=== PATIENT | female | born 1990 | race Caucasian/White ===

== ENCOUNTER → 2016-10-30 | Outpatient (CLI) | payer OTHER ==
[~2016-10-30] MED LIST: INUL1CHW2; PRENTAB65 PO
[2016-10-30 14:03] LABS: URINE APPEARANCE CLEAR (CLEAR); URINE BILIRUBIN NEG (NEG); URINE COLOR YELLOW; URINE EPITHELIAL CELL AUTO >30 /lpf (0-5); URINE NITRITE NEG (NEG); UROBILINOGEN NEG (NEG)
[2016-10-30 14:04] LABS: MANUAL MICROSCOPIC REQUIRED? NO; REVIEW REQ? NO
[2016-10-30 14:34] LABS: HEMATOCRIT 32.4 % (37-47)
[2016-10-30 15:29] LABS: GTGD 50 Grams
== END | disposition home or self-care (01) ==
LOC: C.LAB1850 12:53
PROVIDERS: ATTEND Obstetrics & Gynecology
DX: Z34.03 Encounter for supervision of normal first pregnancy, third trimester (principal)

== ENCOUNTER 2016-12-16 05:10 | Outpatient (CLI) | payer OTHER ==
[~2016-12-16] VITALS: Ht 154.9 cm; Wt 70.5 kg
[2016-12-16 05:55] VITALS: Ht 154.9 cm; Wt 70.5 kg
[2016-12-16] MEDS ORDERED: PRENTAB65 PO (05:55)
[2016-12-16] MEDS ORDERED: INUL1CHW2 (05:55)
[2016-12-16] MEDS ORDERED: LACTATED RINGER'S 1000ML 1,000 ML IV SCH (06:59)
[2016-12-16] MEDS ORDERED: BETAMETH SOD PHOS/ACETATE IA 6 MG/ML IM SCH (07:30)
[2016-12-16] MEDS ORDERED: INFLUENZA VIRUS QUAD VACCINE 0.5 ML SYR IM. ONE (07:30)
[2016-12-16] MEDS ORDERED: INFLUENZA ADMINISTRATION CHARGE ONE (07:30)
[2016-12-16 07:42] LABS: BASO % 0.2 %; BASO ABS # 0.02 K/uL (0-0.2); COMPLETE YES; EOS % 1.3 %; IG% 0.2 %; LYMPH % 15.4 %; LYMPH ABS # 1.45 K/uL (1.2-3.4); MEAN CELL VOLUME 92.3 fL (80-100); MEAN CORPUSCULAR HEMOGLOBIN 30.8 pg (25-34); MEAN CORPUSCULAR HGB CONC 33.3 g/dl (32-36); MEAN PLATELET VOLUME 10.9 fL (7.4-10.4); MONO % 8.9 %; PLATELET COUNT 186 K/uL (130-400); WHITE BLOOD COUNT 9.43 K/uL (4.8-10.8)
[2016-12-16] MEDS ORDERED: PENICILLIN G POTASSIUM IV 6 MU in DEXTROSE 5% 250ML 250 ML IV ONE (08:00)
[2016-12-18 01:04] LABS: CHLAMYDIA TRACH RNA*** NOT DETECTED (NOT DETECTED); GC (NEIS GONORRHOEAE)RNA** NOT DETECTED (NOT DETECTED)
== END 2016-12-16 08:30 | disposition short-term general hospital (02) ==
LOC: C.LD 05:10 → C.OPB 05:10
PROVIDERS: ATTEND Obstetrics & Gynecology
DX: O60.03 Preterm labor without delivery, third trimester (principal); Z3A.35 35 weeks gestation of pregnancy

== ENCOUNTER 2019-03-23 00:38 | Inpatient (IN) ==
[2019-03-23] MEDS ORDERED: PENICILLIN G POTASSIUM 6 MU in DEXTROSE 5% 250 ML IV STA (01:54)
[2019-03-23] MEDS ORDERED: PENICILLIN G POTASSIUM 3 MU in DEXTROSE 5% 100 ML IV PRN (01:54)
[2019-03-23] MEDS ORDERED: OXYTOCIN 30 UNITS/500 ML BAG IV PRN ×2 (01:54→06:09)
[2019-03-23] MEDS: LACTATED RINGER'S 1,000 ML IV PRN ×2 (02:05→03:07)
[2019-03-23] MEDS ORDERED: ePHEDrine sulfate 50 MG/ML AMP ONE (02:40)
[2019-03-23] MEDS ORDERED: BUPIVACAINE 0.25% 30 ML VIAL ONE (02:40)
[2019-03-23] MEDS ORDERED: fentaNYL citrate 100 MCG/2 ML VIAL ONE (02:40)
[2019-03-23] MEDS ORDERED: fentaNYL 2MCG/ML ROPIV 1.25MG/ML 100 ML BAG EPI ONE (02:46)
[2019-03-23 02:58] LABS: Hematocrit (blood only) 33.9 % (37-47); Hemoglobin 11.3 g/dL (12.0-16.0); Mean Corpuscular Volume 89.9 fL (80-100); Mean Platelet Volume 11.5 fL (7.4-10.4); Platelet Count 182 K/uL (130-400); RDW Coefficient of Variation 13.3 % (11.5-14.5); RDW Standard Deviation 43.4 fL (36.4-46.3); Red Blood Count 3.77 M/uL (4.2-5.4); White Blood Count 11.44 K/uL (4.8-10.8)
[2019-03-23 02:59] LABS: Mean Corpuscular Hgb Conc 33.3 g/dL (32-36)
--- NOTE | 2019-03-23 03:47 | Anesthesiology Consultation ---
Date of Service March 23, 2019 Assessment & Plan Chart Review Chart Review: Acceptable Risk for Surgery and Patient NOT seen in Pre Admission Testing Consults Requested none History Height/Weight Height: 5 ft 2 in Weight: 76.657 kg Allergies Allergy/AdvReac Type Severity Reaction Status Date / Time No Known Allergies Allergy Unverified 12/16/16 05:55 Medications Home Medications Medication Instructions Recorded Confirmed Last Taken vit-iron fum-folic ac 1 tab PO DAILY 03/23/19 03/23/19 03/16/19 [ Vitamin] Active Medications Generic Name Dose Route Start Last Admin Trade Name Freq PRN Reason Stop Dose Admin Lactated Ringer's 1,000 mls @ 125 mls/hr 03/23/19 01:54 03/23/19 03:07 Lr IV 03/25/19 01:53 125 mls/hr .Q8H PRN Administration L&D Protocol Protocol Past Surgical History Surgical History Hx of tonsillectomy Social History Smoking Status: Never smoker Hx Alcohol Use: No Hx Substance Use: No Physical Exam Vital Signs Last Vital Signs Temp 36.7 C 03/23/19 00:52 Pulse 67 03/23/19 03:42 Resp 18 03/23/19 02:30 BP 105/54 L 03/23/19 03:41 Pulse Ox 97 03/23/19 03:42 Testing Laboratory Results 03/23/19 02:00
--- NOTE | 2019-03-23 04:33 | Labor Progress Brief Note ---
Date of Service March 23, 2019 Subjective Reason For Note: Routine Evaluation Comfortable with Epidural Assessment & Plan (1) Amniotic fluid leaking: Labor progressed spontaneously. Await rest of dilation and then begin second stage. Present on Admission?: Yes Physical Exam Genitourinary: Manual OB Exam: + cervical dilation 9 cm (anterior lip), + cervical effacement 100%, + station + 1 and + amniotic fluid clear OB Exam Monitor Tracing: + category I Results & Data Vital Signs (Past 12 Hours) Vital Signs Temp Pulse Resp BP Pulse Ox 03/23/19 04:30 76 122/64 03/23/19 04:27 82 100 03/23/19 04:25 65 122/67 03/23/19 04:22 63 98 03/23/19 04:20 61 119/69 03/23/19 04:17 60 98 03/23/19 04:15 64 109/68 03/23/19 04:12 58 L 98 03/23/19 04:11 66 118/56 L 03/23/19 04:07 70 98 03/23/19 04:05 58 L 116/72 03/23/19 04:02 64 97 03/23/19 04:00 18 03/23/19 03:59 64 119/74 03/23/19 03:57 61 98 03/23/19 03:56 62 123/73 03/23/19 03:52 65 98 03/23/19 03:51 61 117/67 03/23/19 03:47 70 98 03/23/19 03:45 18 03/23/19 03:42 67 97 03/23/19 03:41 64 105/54 L 03/23/19 03:40 18 03/23/19 03:37 67 97 03/23/19 03:35 18 03/23/19 03:34 61 118/63 03/23/19 03:32 69 118/55 L 98 03/23/19 03:30 76 126/78 03/23/19 03:28 68 124/81 03/23/19 03:27 72 122/81 99 03/23/19 03:22 68 98 03/23/19 03:17 70 98 03/23/19 03:12 71 99 03/23/19 03:07 88 100 03/23/19 03:02 74 100 03/23/19 02:30 18 03/23/19 02:00 18 03/23/19 00:55 76 115/75 03/23/19 00:52 36.7 C 18
--- NOTE | 2019-03-23 06:03 | Delivery Summary ---
Vaginal Delivery Summary Date of Service March 23, 2019 Vaginal Delivery Summary DIAGNOSES: 1. Hernández intrauterine at 40wk gestation. 2. SROM/Labor. 3. Group B Streptococcus Pos. PROCEDURE: Spontaneous vaginal delivery without laceration. SURGEON: Katia Gooden MD. SUGAR SAMPLER: None. ESTIMATED BLOOD LOSS: 250 mL. COMPLICATIONS: None. PLACENTA: Spontaneous and intact with a 3-vessel cord. DISPOSITION: Stable to labor and delivery. DESCRIPTION: The patient pushed well and brought the head to in OA position. The 's head was allowed to deliver with contraction force and no further active pushing, with the perineum protected during this time. The shoulders delivered easily with a maternal pushing effort. There was no nuchal cord. The Left shoulder was anterior. The shoulders and body delivered without any difficulty, and the infant was placed on the maternal abdomen. It was vigorous and moving all extremities, and making respiratory efforts. The cord was doubly clamped by the MD and then cut by the FOB. The placenta delivered spontaneously and was noted to be intact and with a 3VC. The cervix, vagina and perineum were examined and were found to be without defect requiring repair. The fundus was firm and lochia minimal immediately after delivery.
[2019-03-23] MEDS ORDERED: OXYCODONE/ACETAMINOPHEN 5mg/325mg TAB PO PRN (06:09)
[2019-03-23] MEDS ORDERED: ACETAMINOPHEN 325 MG TAB PO PRN (06:09)
[2019-03-23] MEDS ORDERED: SUPERCREAM 0.870% 15 GM JAR EXT PRN (06:09)
[2019-03-23] MEDS ORDERED: DIPHTHERIA/TETANUS/PERTUSSIS 0.5 ML SYR/VIAL IM ONE (06:09)
[2019-03-23] MEDS ORDERED: HYDROCORTISONE ACETATE 25 MG SUPP PR PRN (06:09)
[2019-03-23] MEDS ORDERED: BENZOCAINE 20% AER SPR 82.5 GM CAN EXT PRN (06:09)
[2019-03-23] MEDS ORDERED: LACTATED RINGER'S 1,000 ML IV SCH (06:15)
--- NOTE | 2019-03-23 08:22 | Anesthesia Procedure Note ---
Date of Service March 23, 2019 Anesthesia Post Epidural Note Vital Signs Vital Signs: Temp Pulse Resp BP Pulse Ox 36.9 C 79 18 109/67 96 03/23/19 08:05 03/23/19 08:09 03/23/19 08:05 03/23/19 08:09 03/23/19 05:57 Notes Mental Status: alert / awake / arousable and participated in evaluation Nausea / Vomiting: adequately controlled Pain: adequately controlled Airway Patency, RR, SpO2: stable & adequate BP & HR: stable & adequate Hydration State: stable & adequate Neuraxial Anesthesia: was administered and sensory block is resolving Anesthetic Complications: no major complications apparent Epidural: Removed without complications and With tip intact
[2019-03-23] MEDS: DOCUSATE SODIUM 100 MG CAP PO SCH ×2 (09:15→20:10)
[2019-03-23] MEDS: PRENATAL VITAMIN 1 TAB PO SCH (09:15)
[2019-03-23] MEDS: IBUPROFEN 600 MG TAB PO PRN (23:59)
--- NOTE | 2019-03-24 06:24 | Obstetrical Progress Note ---
Date of Service March 24, 2019 day #1 from vaginal delivery the patient is doing well she has minimal bleeding or pain she has no extremity pain she is ambulating well she is breast-feeding Assessment & Plan (1) Spontaneous vaginal delivery: day #1 continue current care Physical Exam Constitutional WD/WN, vitals as above Respiratory normal respiratory effort Genitourinary Uterus firm nontender extremity exam negative Results & Data Vital Signs (Past 12 Hours) Vital Signs Temp Pulse Resp BP Pulse Ox 03/24/19 03:33 36.6 C 72 16 94/60 L 96 03/23/19 23:38 36.3 C L 79 18 109/74 99 03/23/19 19:24 36.6 C 72 18 116/75 98
[2019-03-24 06:49] LABS: Hematocrit (blood only) 30.9 % (37-47); Hemoglobin 10.5 g/dL (12.0-16.0); Mean Corpuscular Volume 90.4 fL (80-100); Platelet Count 166 K/uL (130-400); RDW Coefficient of Variation 13.5 % (11.5-14.5); RDW Standard Deviation 43.9 fL (36.4-46.3); Red Blood Count 3.42 M/uL (4.2-5.4)
[2019-03-24] MEDS: PRENATAL VITAMIN 1 TAB PO SCH (08:43)
[2019-03-24] MEDS: DOCUSATE SODIUM 100 MG CAP PO SCH ×2 (08:43→20:07)
[2019-03-24] MEDS: IBUPROFEN 600 MG TAB PO PRN (12:56)
[2019-03-25 06:49] LABS: Hematocrit (blood only) 31.1 % (37-47); Hemoglobin 10.4 g/dL (12.0-16.0)
--- NOTE | 2019-03-25 08:15 | Obstetrical Progress Note ---
Date of Service March 25, 2019 Assessment & Plan (1) Spontaneous vaginal delivery: PPD#2 doing well .Discharge to home today. Instructions discussed. Subjective Ambulation: ambulating normally Voiding: no voiding problems Diet Tolerance:: regular diet Lochia:: Moderate PPD#2 doing well. in the room during visit. Review of Systems All systems reviewed & are unremarkable except as noted in HPI & below Physical Exam Constitutional WD/WN, vitals as above no acute distress Respiratory normal respiratory effort Cardiovascular Rate/Rhythm: regular rate and regular rhythm Gastrointestinal (Abdomen) Inspection/Auscultation: abdomen normal to inspection; abdomen not distended Percussion/Palpation: abdomen soft Genitourinary OB Exam Abdomen: + fundal height Fundus: + firm; not tender Results & Data Vital Signs (Past 12 Hours) Vital Signs Temp Pulse Resp BP 03/25/19 00:20 36.5 C 67 18 112/77
[2019-03-25] MEDS: DOCUSATE SODIUM 100 MG CAP PO SCH (08:52)
[2019-03-25] MEDS: PRENATAL VITAMIN 1 TAB PO SCH (08:52)
== END 2019-03-25 13:00 | disposition home or self-care (01) | DRG 807 ==
LOC: OPB 00:38 → 4S1 00:41 → 4S2 08:58